=== PATIENT | male | born 1970 | race American Indian/Alaskan Native ===

== ENCOUNTER 2017-07-25 13:09 | Emergency (ER) | payer SELFPAY ==
[2017-07-25 13:27] VITALS: BP 137/77; PULSE 67; RESP 16; TEMP 98.6; O2SAT 98
[2017-07-25 14:25] LABS: URINE BILIRUBIN NEGATIVE (NEGATIVE); URINE BLOOD NEGATIVE (NEGATIVE); URINE CLARITY CLEAR (Clear); URINE COLOR YELLOW (YELLOW); URINE GLUCOSE (UA) NEG (Normal); URINE LEUKOCYTE ESTERASE NEG Leu/uL (Negative); URINE PROTEIN NEGATIVE (NEGATIVE); URINE UROBILINOGEN 0.2-1.0 mg/dL (0.2-1.0)
--- NOTE | 2017-07-25 14:53 | ED PDOC ---
HPI: Male Pain Time Seen by Provider: 07/25/17 13:30 Chief Complaint (Nursing): Male Genitourinary History Per: Patient Additional Complaint(s): Pt. states yesterday at 1200 he was having rough intercourse when he thrusted forward aggressive injuring his penis and his R testicle. States he immediately lost his erection. Since then he's had swelling and minimal pain to the R testicle and to the penile shaft. Also reports he has not been able to have a full erection since the incident. Denies hematuria, dysuria, abdominal pain, pelvic pain, penile pain. Past Medical History Reviewed: Historical Data, Nursing Documentation, Vital Signs Vital Signs: Last Vital Signs Temp 98.6 F 07/25/17 13:26 Pulse 67 07/25/17 13:26 Resp 16 07/25/17 13:26 BP 137/77 07/25/17 13:26 Pulse Ox 98 07/25/17 13:26 - Surgical History Surgical History: No Surg Hx - Family History Family History: States: No Known Family Hx - Home Medications Home Medications: Ambulatory Orders Medication Instructions Recorded Ibuprofen [Motrin Tab] 800 mg PO Q8 PRN #30 tab 07/25/17 - Allergies Allergies/Adverse Reactions: Allergies Allergy/AdvReac Type Severity Reaction Status Date / Time No Known Allergies Allergy Verified 07/25/17 13:25 Review of Systems ROS Statement: Except As Marked, All Systems Reviewed And Found Negative Physical Exam - Physical Exam Appears: Positive for: Well, Non-toxic, No Acute Distress Skin: Positive for: Normal Color, Warm. Negative for: Rash Eye Exam: Positive for: Normal appearance Gastrointestinal/Abdominal: Positive for: Normal Exam, Soft. Negative for: Tenderness Male Genital Exam: Positive for: scrotum tenderness (R). Negative for: normal genitalia (? minimal swelling to L side of penile shaft), no hernia, epididymal tenderness, lesions, scrotum tenderness (L), testicular tenderness (R), testicular tenderness (L), urethral discharge Neurologic/Psych: Positive for: Alert, Oriented - ECG O2 Sat by Pulse Oximetry: 98 - Progress ED Course And Treament: 1348 Case d/w Dr. Reynoso, urology investigation manager, who requests UA, scrotal duplex, and MRI of penis to be done. Testicular US, MRI of penis. Results d/w Dr. Reynoso and cleared pt. for discharge. Recommends no sexual activity. Pt. informed of results and advised to refrain from sexual activity until cleared by urology. Disposition - Clinical Impression Clinical Impression: Contusion of scrotum, Contusion of penis - Patient ED Disposition Is Patient to be Admitted: No - Disposition Referrals: [facility] [Outside] Shashi Reynoso MD [Medical Doctor] - Disposition: Routine/Home Disposition Time: 17:00 Condition: STABLE Additional Instructions: FOLLOW UP WITH DR. REYNOSO FOR FURTHER EVALUATION RETURN TO ED IMMEDIATELY IF SYMPTOMS WORSEN Prescriptions: Ibuprofen [Motrin Tab] 800 mg PO Q8 PRN #30 tab PRN Reason: pain Instructions: Contusion (DC) Forms: [employer] (Lao) Print Language: M[place]IN[place]QU[place]IS
--- NOTE | 2017-07-25 16:09 | US ---
HISTORY: pain TECHNIQUE: Realtime sonography through the scrotum with color and doppler flow. COMPARISON: None Available. FINDINGS: RIGHT TESTICLE: Measures 4.7 x 2.2 x 2.7 cm. While the overall color Doppler blood flow appears within normal limits throughout the right testicle, irregular hypoechoic changes are seen at the midportion of the posterior right testicle in a pattern suspicious for contusion or hematoma with fracture not felt to be present. RIGHT EPIDIDYMIS: Epididymal head measures 1.7 x 0.9 x 0.9 cm. Mild hyperemia is seen at the right epididymal head with heterogeneous echotexture and a few tiny 1-2 mm cysts. LEFT TESTICLE: Measures 4.0 x 1.7 x 2.6 cm. Similar to the right testicle, an area of diminished echogenicity is irregular in shape occupying the posterior mid to inferior pole left testicle suspicious for an additional contusion or hematoma with fracture not completely excluded though not favored. Overall color Doppler blood flow was unremarkable appearing. LEFT EPIDIDYMIS: Epididymal head measures 1.4 x 1.0 x 1.3 cm. Multiple epididymal cysts are identified at the head which is normal in overall color Doppler blood flow. HYDROCELE: Trace right hydrocele. VARICOCELE: Probable early left lateral hemiscrotal varicocele. None identified at the right. OTHER FINDINGS: A 6 mm minimally complex cyst is seen extrinsic to the low right testicle but within the wall of the right hemiscrotum anterior to the midportion right testicle with a peripheral nodule of uncertain origin. Marked thickening of the scrotal wall is appreciated bilaterally. IMPRESSION: 1. Bilateral posterior testicular contusions or hematomas are seen, left greater than right with fracture not identified at the right side. It is difficult to completely exclude fracture at the left though one is not favored. No testicular torsion identified bilaterally. 2. Right epididymal head hyperemia may indicate epididymitis. A few tiny right epididymal head cysts are identified. 3. Left epididymal cysts are identified at the head without hyperemia. 4. Trace right hydrocele and potential early left hemiscrotal varicocele. Marked scrotal soft tissue thickening bilaterally. Findings discussed with Dr. Nunez with written down and read back verification 07/25/2017.
--- NOTE | 2017-07-25 16:56 | MRI ---
PROCEDURE: MRI pelvis HISTORY: trauma to penis COMPARISON: None available TECHNIQUE: Multi sequence, multiplanar imaging of the pelvis was performed without intravenous gadolinium administration. The examination was performed as a tailored examination specifically for evaluation of possible penile fracture. FINDINGS: There is no evidence of penile fracture. The [address] albuginea is intact. Box fascia appears intact. There is no hematoma identified. Limited evaluation of the pelvic soft tissues demonstrates no mass or fluid collection. There is no pelvic lymphadenopathy appreciated. The bladder is grossly unremarkable. The prostate is normal in appearance. There are articular erosions or subchondral cysts seen in both femoral heads. The acetabulum is unremarkable in appearance bilaterally. Please correlate for any evidence of inflammatory arthropathy. There is no evidence of avascular necrosis. IMPRESSION: No evidence penile fracture. No penile hematoma. Arthropathy of both hips. Please correlate with clinical and laboratory evaluation for possible inflammatory arthropathy.
== END 2017-07-25 17:30 | disposition home or self-care (01) ==
LOC: H.ER 13:09
DX: S30.21XA Contusion of penis, initial encounter (principal); S30.22XA Contusion of scrotum and testes, initial encounter; Y92.89 Other specified places as the place of occurrence of the external cause

== ENCOUNTER 2017-07-31 12:10 | Emergency (ER) | payer SELFPAY ==
[2017-07-31 12:41] VITALS: BP 133/67; PULSE 74; RESP 16; TEMP 98; O2SAT 99
--- NOTE | 2017-07-31 13:26 | ED PDOC ---
HPI: Male Pain Time Seen by Provider: 07/31/17 12:35 Chief Complaint (Nursing): Groin Pain Chief Complaint (Provider): Groin Pain History Per: Patient History/Exam Limitations: no limitations Onset/Duration Of Symptoms: Days (x5) Current Symptoms Are (Timing): Still Present Additional Complaint(s): 46 year old male presents to the ED complaining of groin pain six days after being seen here for an intercourse related penile injury. He states he felt no pain on 07/25 when testicular torsions and penile fracture were ruled out after having rough intercourse on 07/24. The day after the visit though, he notes pain developed underneath his scrotum. Patient reports pain is worse when forcefully trying to urinate, but denies dysuria, hematuria, and new trauma. Additionally, patient notes initial swelling is completely resolved and he is able to have full erections. Denies dysuria, hematuria, pyuria, back pain, flank pain, fever, abodminal pain, N/V. PMD: none provided Past Medical History Reviewed: Historical Data, Nursing Documentation, Vital Signs Vital Signs: Last Vital Signs Temp 98.0 F 07/31/17 12:39 Pulse 74 07/31/17 12:39 Resp 16 07/31/17 12:39 BP 133/67 07/31/17 12:39 Pulse Ox 99 07/31/17 12:39 - Medical History PMH: No Chronic Diseases - Surgical History Surgical History: No Surg Hx - Family History Family History: States: Unknown Family Hx - Home Medications Home Medications: Ambulatory Orders Medication Instructions Recorded Ibuprofen [Motrin Tab] 800 mg PO Q8 PRN #30 tab 07/25/17 - Allergies Allergies/Adverse Reactions: Allergies Allergy/AdvReac Type Severity Reaction Status Date / Time No Known Allergies Allergy Verified 07/31/17 12:31 Review of Systems ROS Statement: Except As Marked, All Systems Reviewed And Found Negative Constitutional: Negative for: Other (new trauma) Genitourinary Male: Positive for: Scrotal Pain (underneath scrotum), Penile Pain (when trying to forcefully urinate). Negative for: Dysuria, Hematuria, Other (penile swelling) Physical Exam - Reviewed Nursing Documentation Reviewed: Yes Vital Signs Reviewed: Yes - Physical Exam Appears: Positive for: No Acute Distress Head Exam: Positive for: ATRAUMATIC, NORMOCEPHALIC Skin: Positive for: Normal Color, Warm, Dry Gastrointestinal/Abdominal: Positive for: Normal Exam, Soft. Negative for: Tenderness Male Genital Exam: Positive for: normal genitalia (circumcised), no hernia, other (No perineal swelling, warmth, erythema, fluctuance). Negative for: erythema, hernia mass, lesions, testicular tenderness (R) (swelling or mass), testicular tenderness (L) (swelling or mass) Back: Positive for: Normal Inspection. Negative for: L CVA Tenderness, R CVA Tenderness Neurologic/Psych: Positive for: Alert, Oriented (x3). Negative for: Motor/ Sensory Deficits - Laboratory Results Result Diagrams: 07/31/17 14:40 07/31/17 14:40 - ECG O2 Sat by Pulse Oximetry: 99 (RA) Pulse Ox Interpretation: Normal Medical Decision Making Medical Decision Making: Initial Impression: perineal pain likely due to injury Time: 12:47 Initial Plan: --Urinalysis --Urine Culture --Testicular US 14:16 Testicular US FINDINGS: RIGHT TESTICLE: Measures 2.9 by 1.9 x 3.9 cm. Irregular echo characteristics within the right testicle consistent with trauma residing in the middle and inferior aspect of the right testicle. RIGHT EPIDIDYMIS: Epididymal head measures 1 x 0.9 x 1 cm. Simple epididymal cyst 6 x 7 x 2 mm LEFT TESTICLE: Measures 2.5 x 1.7 x 3.9 cm. Irregular echo characteristics within the left testicle similar to that seen on the right side likely the sequela prior trauma / evolving hematoma. 2 small peripheral cysts interposed between left testicle and scrotum 1.4 x 3.9 mm and 2.2 x 6.2 mm. LEFT EPIDIDYMIS: Epididymal head measures 0.9 x 1.2 x 1.1 cm. Two simple epididymal cyst 0.6 x 0.6 cm and 0.8 x 0.7 cm. HYDROCELE: Bilateral VARICOCELE: Unilateral, left OTHER FINDINGS: Within the right scrotum and corresponding findings on physical examination a complex process likely inflammatory without appreciable vascularity perhaps early abscess, phlegmon. IMPRESSION: -Posttraumatic changes both testicles. -Small bilateral hydroceles. -Unilateral, left varicocele. -Ill-defined mass, likely inflammatory interposed between the right testicle in the scrotal sac likely evolving abscess. This represents a new finding 14:27 Patient informed of findings that there may be a possible infection / boil where the pain is noted. He is also informed that further testing is needed , such as blood work and a CT. 15:[address] FINDINGS: BLADDER: Unremarkable. No mass. REPRODUCTIVE ORGANS: Bilateral hydroceles identified. Findings on ultrasound are not apparent on the current study. However, given the appearance and location of the finding this is not unexpected. VISUALIZED BOWEL: Unremarkable. PERITONEUM: Unremarkable, as visualized. No free fluid. No free air. LYMPH NODES: Unremarkable. No enlarged lymph nodes. VASCULATURE: Unremarkable. BONES: No fracture or focal lesion. OTHER FINDINGS: None. IMPRESSION: Findings identified on recent scrotal ultrasound cannot be duplicated on the current study. However ultrasound is substantially more sensitive and specific in the detection of scrotal abnormalities. There are bilateral hydroceles identified. 16:00 Patient informed that blood work is within normal limits. He is also informed of CT results. Instructed to ice area where the pain is. Advised to f/u with urologist for further evaluation and for clearance to return to sexual/physical activity. Scribe Attestation: Documented by Anabella Freeman, acting as a scribe for Jose Nunez PA-C. Provider Scribe Attestation: All medical entries made by the Scribe were at my direction and personally dictated by me. I have reviewed the chart and agree that the record accurately reflects my personal performance of the history, physical exam, medical decision making, and the department course for this patient. I have also personally directed, reviewed, and agree with the discharge instructions and disposition. Disposition - Clinical Impression Clinical Impression: Contusion of scrotum - Patient ED Disposition Is Patient to be Admitted: No - Disposition Referrals: [facility] [Outside] [facility] [Outside] Shashi Reynoso MD [Medical Doctor] - Disposition: Routine/Home Disposition Time: 16:00 Condition: STABLE Additional Instructions: Follow up with urologist or [facility] for further evaluation. Return to ED immediately if symptoms worsen. Instructions: Contusion (DC) Forms: [facility] ([place]) Print Language: SWEDISH
[2017-07-31 13:28] LABS: URINE BILIRUBIN NEGATIVE (NEGATIVE); URINE BLOOD NEGATIVE (NEGATIVE); URINE CLARITY CLEAR (Clear); URINE COLOR YELLOW (YELLOW); URINE GLUCOSE (UA) NEG (Normal); URINE LEUKOCYTE ESTERASE NEG Leu/uL (Negative); URINE PROTEIN NEGATIVE (NEGATIVE); URINE UROBILINOGEN 0.2-1.0 mg/dL (0.2-1.0)
--- NOTE | 2017-07-31 14:17 | US ---
HISTORY: pain TECHNIQUE: Realtime sonography through the scrotum with color and doppler flow. COMPARISON: July 25, 2017 FINDINGS: RIGHT TESTICLE: Measures 2.9 by 1.9 x 3.9 cm. Irregular echo characteristics within the right testicle consistent with trauma residing in the middle and inferior aspect of the right testicle. RIGHT EPIDIDYMIS: Epididymal head measures 1 x 0.9 x 1 cm. Simple epididymal cyst 6 x 7 x 2 mm LEFT TESTICLE: Measures 2.5 x 1.7 x 3.9 cm. Irregular echo characteristics within the left testicle similar to that seen on the right side likely the sequela prior trauma/ evolving hematoma. 2 small peripheral cysts interposed between left testicle and scrotum 1.4 x 3.9 mm and 2.2 x 6.2 mm. LEFT EPIDIDYMIS: Epididymal head measures 0.9 x 1.2 x 1.1 cm. Two simple epididymal cyst 0.6 x 0.6 cm and 0.8 x 0.7 cm. HYDROCELE: Bilateral VARICOCELE: Unilateral, left OTHER FINDINGS: Within the right scrotum and corresponding findings on physical examination a complex process likely inflammatory without appreciable vascularity perhaps early abscess, phlegmon. IMPRESSION: Posttraumatic changes both testicles. Small bilateral hydroceles. Unilateral, left varicocele. Ill-defined mass, likely inflammatory interposed between the right testicle in the scrotal sac likely evolving abscess. This represents a new finding
[2017-07-31 14:45] LABS: BASO # 0.1 K/uL (0.0-0.2); BASO % 0.8 % (0.0-2.0); EOS % 0.6 % (0.0-4.0); HEMOGLOBIN 14.6 g/dL (12.0-18.0); LYMPH % 49.4 % (20.0-40.0); MEAN CORPUSCULAR HEMOGLOBIN 28.7 pg (27.0-31.0); MEAN PLATELET VOLUME 8.4 fl (7.2-11.7); MONO # 0.4 K/uL (0.0-0.8); MONO % 6.1 % (0.0-10.0); NEUT # 2.6 K/uL (1.8-7.0); NEUT % 43.1 % (50.0-75.0); NRBC % 0.1 % (0.0-0.0); RBC 5.08 Mil/uL (4.40-5.90); RED CELL DISTRIBUTION WIDTH 13.9 % (11.5-14.5); WHITE BLOOD COUNT 6.1 K/uL (4.8-10.8)
[2017-07-31 14:54] LABS: VENOUS BLOOD GAS BASE EXCESS 4.5 mmol/L (0.0-2.0); VENOUS BLOOD GAS PCO2 61 mmHg (40-60); VENOUS BLOOD GAS PO2 18 mm/Hg (30-55); VENOUS BLOOD PH 7.33 (7.32-7.43)
[2017-07-31 15:00] LABS: ALB/GLOB RATIO 1.3 (1.0-2.1); ALBUMIN 4.6 g/dL (3.5-5.0); ALT/SGPT 62 U/L (21-72); AST/SGOT 39 U/L (17-59); BLOOD UREA NITROGEN 11 mg/dl (9-20); CALCIUM 9.7 mg/dL (8.4-10.2); GFR AFRICAN-AMERICAN > 60; GFR NON-AFRICAN AMERICAN > 60
[2017-07-31] MEDS ORDERED: Iohexol 300 100 ML IJ ONE (15:06)
[2017-07-31] MEDS ORDERED: Sodium Chloride 0.9% 50 ML IV ONE (15:06)
--- NOTE | 2017-07-31 15:57 | CT ---
PROCEDURE: CT Pelvis with contrast HISTORY: Possible R testicular abscess seen on US COMPARISON: July 31, 2017. TECHNIQUE: Contiguous axial images of the pelvis with contrast. Coronal and sagittal reformats generated. Contrast dose: 95 cc Omnipaque 300 Radiation dose: Total exam DLP = 664.71 mGy-cm. This CT exam was performed using one or more of the following dose reduction techniques: Automated exposure control, adjustment of the mA and/or kV according to patient size, and/or use of iterative reconstruction technique. FINDINGS: BLADDER: Unremarkable. No mass. REPRODUCTIVE ORGANS: Bilateral hydroceles identified. Findings on ultrasound are not apparent on the current study. However, given the appearance and location of the finding this is not unexpected. VISUALIZED BOWEL: Unremarkable. PERITONEUM: Unremarkable, as visualized. No free fluid. No free air. LYMPH NODES: Unremarkable. No enlarged lymph nodes. VASCULATURE: Unremarkable. BONES: No fracture or focal lesion. OTHER FINDINGS: None. IMPRESSION: Findings identified on recent scrotal ultrasound cannot be duplicated on the current study. However ultrasound is substantially more sensitive and specific in the detection of scrotal abnormalities. There are bilateral hydroceles identified.
== END 2017-07-31 16:25 | disposition home or self-care (01) ==
LOC: H.ER 12:10
DX: S30.22XA Contusion of scrotum and testes, initial encounter (principal); Y92.89 Other specified places as the place of occurrence of the external cause
CPT/HCPCS: 72193; 80053; 81003; 82803; 85025; 87040; 87086; 87491; 87591; 93975; 99283; Q9967